=== PATIENT | female | born 1965 | race Caucasian/White ===

== ENCOUNTER 2024-08-14 07:35 | Day surgery (SDC) | payer MEDICAID, OTHER ==
[~2024-08-14 07:35] MED LIST: Midazolam 1 MG/ML 2 ML SDV ONE; Propofol 200 MG/20 ML SDV ONE; fentaNYL 50 MCG/ML SDV ONE
[2024-08-14] MEDS: Lactated Ringers 1,000 ML IV SCH (08:18)
[2024-08-14] MEDS ORDERED: Ondansetron 4 MG/2 ML SDV ONE (08:44)
== END 2024-08-14 11:00 | disposition home or self-care (01) ==
LOC: JP.SDS 07:35
PROVIDERS: ATTEND Surgery
DX: Z12.11 Encounter for screening for malignant neoplasm of colon (principal); D12.5 Benign neoplasm of sigmoid colon; Z86.0100 Personal history of colon polyps, unspecified; E66.9 Obesity, unspecified
CPT/HCPCS: 00811; 45380; 88305; J2250; J2405; J2704; J3010; J7120